=== PATIENT | female | born 1990 | race Two or more races ===

== ENCOUNTER 2025-03-30 12:43 | Inpatient (IN) | payer MEDICAID, OTHER ==
[~2025-03-30] VITALS: Ht 160 cm; Wt 101.9 kg
--- NOTE | 2025-03-30 13:20 | ED.PDOC ---
SOB-HPI HPI Comments 35y F who presents to the ED for chief complaint of shortness of breath. Pt states she has been having shortness of breath with cough and fever for the past 1 days. Pt states she has been having productive mucus and states "it when she takes a deep breath." Pt denies any sick contacts. . Pt denies any other symptoms at this time. Chief Complaint: Shortness of Breath Time Seen by MD: 13:17 Reviewed notes: Medications, Allergies Information Source: Patient Mode of Arrival: Ambulatory Brought in by: self Severity: Moderate Timing: Hours Duration: Since onset Context: At Rest PE Risk Factors: None History of: None Prehospital treatment: None Modifying Factors: Nothing Associated Signs and Symptoms: Cough If cough with SOB: Productive Past Medical History PAST MEDICAL HISTORY: Denies Surgical History: Denies all surgeries HEALTH TECHNICIAN HEARING History: Denies all HEALTH TECHNICIAN HEARING Hx Family History Family History: Family hx of DM Social History Smoker: Non-Smoker Alcohol: Occasionally Drugs: Denies Drug Use Lives In: Home Constitutional: reports: fever; denies: chills, diaphoresis, fatigue, malaise, sweats, weakness, others EENTM: denies: blurred vision, double vision, ear bleeding, ear discharge, ear drainage, ear pain, ear ringing, eye pain, eye redness, hearing loss, mouth pain, mouth swelling, nasal discharge, nose bleeding, nose congestion, nose pain, photophobia, tearing, throat pain, throat swelling, voice changes, others Respiratory: reports: cough, shortness of breath; denies: hemoptysis, orthopnea, SOB at rest, SOB with excertion, stridor, wheezing, others Cardiovascular: denies: chest pain, dizzy spells, diaphoresis, Dyspnea on exertion, edema, irregular heart beat, left arm pain, lightheadedness, palpitations, PND, syncope, others Gastrointestinal: denies: abdomen distended, abdominal pain, blood streaked bowels, constipated, diarrhea, dysphagia, difficulty swallowing, hematemesis, melena, nausea, poor appetite, poor fluid intake, rectal bleeding, rectal pain, vomiting, others Genitourinary: denies: abnormal vagina bleeding, burning, dyspareunia, dysuria, flank pain, frequency, hematuria, incontinence, pain, , vagina discharge, urgency, others Neurological: denies: dizziness, fainting, headache, left sided numbness, left sided weakness, numbness, paresthesia, pre-existing deficit, right sided numbness, right sided weakness, seizure, speech problems, tingling, tremors, weakness, others Musculoskeletal: denies: back pain, gout, joint pain, joint swelling, muscle p ain, muscle stiffness, neck pain, others Integumetry: denies: bruises, change in color, change in hair/nails, dryness, laceration, lesions, lumps, rash, wounds, others Allergic/Immunocompromised: denies: Difficulty Healing, Frequent Infections, Hives, Itching, others Hematologic/Lymphatic: denies: anemia, blood clots, easy bleeding, easy bruising, swollen glands, others Endocrine: denies: excessive hunger, excessive sweating, excessive thirst, excessive urination, flushing, intolerance to cold, intolerance to heat, unexplained weight gain, unexplained weight loss, others Psychiatric: denies: anxiety, bipolar disorder, depression, hopeless, panic disorder, schizophrenia, sleepless, suicidal, others All Other Systems: Reviewed and Negative Physical Exam General Appearance: Moderate Distress HEENT: Normal ENT Inspection, Pharynx Normal, TMs Normal Neck: Full Range of Motion, Non-Tender, Normal, Normal Inspection Respiratory: Chest Non-Tender, Decreased Breath Sounds, No Accessory Muscle Use, Wheezing (Waiting to the right lung base) Cardiovascular: No Edema, No JVD, No Murmur, No Gallop, Tachycardia Breast Exam: Deferred Gastrointestinal: No Organomegaly, Non Tender, No Pulsatile Mass, Normal Bowel Sounds, Soft Genitalia: Deferred Pelvic: Deferred Rectal: Deferred Extremities: No calf tenderness, Normal capillary refill, Normal inspection, Normal range of motion, Non-tender, No pedal edema Musculoskeletal : Apperance: Normal Neurologic: Alert, 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 Was a procedure done?: No Differential Dx Differential Diagnosis: Asthma, Bronchitis, Pneumonia, Pulmonary Embolism, Respiratory Distress, Sinusitis, Allergic Rhinitis, Pharyngitis Comments uri, X-Ray, Labs, Meds, VS Vital Signs Date Time Temp Pulse Resp B/P (MAP) Pulse Ox O2 Delivery O2 Flow Rate FiO2 03/30/25 14:21 129 03/30/25 13:50 16 96 Room Air* 0 21 03/30/25 13:32 101.8 03/30/25 13:14 138 03/30/25 13:00 101.8 139 20 121/82 (95) 94 101.8 Lab Test 03/30/25 13:30 Range/Units White Blood Count 12.1 H 4.4-10.8 10^3/uL Red Blood Count 4.95 4.0-5.20 10^6/uL Hemoglobin 14.7 12.2-16.2 g/dL Hematocrit 42.9 36.0-46.0 % Mean Corpuscular Volume 86.8 80.0-100.0 fL Mean Corpuscular Hemoglobin 29.6 28.0-32.0 pg Mean Corpuscular Hemoglobin Concent 34.2 32.0-36.0 g/dL Red Cell Distribution Width 13.1 11.8-14.3 % Platelet Count 388 140-450 10^3/uL Mean Platelet Volume 7.4 6.9-10.8 fL Neutrophils (%) (Auto) 84.6 H 37.0-80.0 % Lymphocytes (%) (Auto) 7.6 L 10.0-50.0 % Monocytes (%) (Auto) 6.0 0.0-12.0 % Eosinophils (%) (Auto) 1.1 0.0-7.0 % Basophils (%) (Auto) 0.7 0.0-2.0 % Neutrophils # (Auto) 10.2 H 1.6-8.6 10 ^3/uL Lymphocytes # (Auto) 0.9 0.4-5.4 10 ^3/uL Monocytes # (Auto) 0.7 0-1.3 10 ^3/uL Eosinophils # (Auto) 0.1 0-0.8 10 ^3/uL Basophils # (Auto) 0.1 0-0.2 10 ^3/uL Nucleated Red Blood Cells 0.0 % D-Dimer, Quantitative 0.37 0.0-0.49 mg/L FEU Sodium Level 137 136-145 mmol/L Potassium Level 3.9 3.5-5.1 mmol/L Chloride Level 105 98-107 mmol/L Carbon Dioxide Level 23 20-31 mmol/L Anion Gap 9 5-15 Blood Urea Nitrogen 12 9-23 mg/dL Creatinine 0.90 0.550-1.02 mg/dL Glomerular Filtration Rate Calc 84 >90 mL/min BUN/Creatinine Ratio 13.3 10.0-20.0 Serum Glucose 126 H 74-106 mg/dL Calcium Level 9.9 8.7-10.4 mg/dL Troponin I High Sensitivity < 3 L </=34 ng/L Current Medications Medications (Trade) Dose Ordered Sig/Tello Route Start Time Stop Time Status Last Admin Albuterol (Ventolin Medneb) 5 mg ONCE ONCE N 03/30/25 13:15 03/30/25 13:16 DC 03/30/25 13:49 Ipratropium [place] (Atrovent Medneb) 1 mg ONCE ONCE HHN 03/30/25 13:15 03/30/25 13:16 DC 03/30/25 13:49 Acetaminophen (Tylenol Tablet) 650 mg ONCE ONCE PO 03/30/25 13:30 03/30/25 13:31 DC 03/30/25 13:32 IV Hep-Lock was established The patient was given a continuous breathing treatments for the wheezing to the right lung The patient was also given acetaminophen 650 mg by mouth. The patient's D-dimer is within normal limits The chemistry panel is within normal range. The patient's CBC is also showing an elevated white blood cell count of 12.1 but otherwise within normal limits At this time, the patient is being admitted The chest x-ray shows: No sign of any abnormalities The patient is being admitted Images Reviewed?: Images reviewed and evaluated by me Time of 1ST Reevaluation: 13:50 Reevaluation 1ST: Unchanged Patient Education/Counseling: Diagnosis, Treatment, Prognosis Family Education/Counseling: No Family Present Departure 1 Departure Time of Disposition: 14:32 Impression: Primary Impression: Acute chest pain Additional Impression: Tachyarrhythmia Disposition: ADMITTED INPATIENT Admit to: [facility] Condition: Fair Critical Care Note Critical Care Time?: No Stability Stability form required: Yes Unstable for transfer: Telemetry monitoring (Telemetry monitoring required), ED Physician Assesment (Clinical assesment) Heart Score Heart Score: Heart Score Response (Comments) Value History Slightly Suspicious 0 EKG Repolarization Disturb 1 Age <45 0 Risk Factors No known risk factors 0 Troponin Normal limit 0 Total 1 I personally scribed for KAE ERNST MD ([email or web address]) on 03/30/25 at 13:20. Electronically submitted by Aleyda Magaña ([facility]). KAE ERNST MD Mar 30, 2025 13:20
--- NOTE | 2025-03-30 13:22 | ECG ---
[facility] Test Date: 2025-03-30 Test Time: 13:14:02 Pat Name: GENNA MAYES Department: ED Room: [address] [place] [address] Gender: F Handling Tech: ARIELA : 1990 Requested By: KAE ERNST Order Number: [id number] Reading MD: Hilario Wu Measurements Intervals [place] Rate: 138 P: 67 MS: 128 QRS: 83 QRSD: 78 T: 50 QT: 288 QTc: 437 Interpretive Statements Sinus tachycardia Baseline wander in lead(s) I,aVR Electronically Signed On 03-30-2025 22:37:05 PDT by Hilario Wu Please click the below link to view image of tracing.
[2025-03-30] MEDS: ACETAMINOPHEN 325 MG TAB PO ONE (13:32)
[2025-03-30 13:37] LABS: Basophils # (auto) 0.1 10 ^3/uL (0-0.2); Basophils % (auto) 0.7 % (0.0-2.0); Eosinophils # (auto) 0.1 10 ^3/uL (0-0.8); Eosinophils % (auto) 1.1 % (0.0-7.0); Hematocrit 42.9 % (36.0-46.0); Hemoglobin 14.7 g/dL (12.2-16.2); Lymphocytes # (auto) 0.9 10 ^3/uL (0.4-5.4); Lymphocytes % (auto) 7.6 % (10.0-50.0); Mean Corpuscular Hemoglobin 29.6 pg (28.0-32.0); Mean Corpuscular Hgb Conc. 34.2 g/dL (32.0-36.0); Mean Corpuscular Volume 86.8 fL (80.0-100.0); Monocytes # (auto) 0.7 10 ^3/uL (0-1.3); Neutrophils # (auto) 10.2 10 ^3/uL (1.6-8.6); Neutrophils % (auto) 84.6 % (37.0-80.0); Platelet Count (auto) 388 10^3/uL (140-450); Red Blood Cells 4.95 10^6/uL (4.0-5.20); Red Cell Distribution Width 13.1 % (11.8-14.3); White Blood Cell 12.1 10^3/uL (4.4-10.8)
[2025-03-30] MEDS: IPRATROPIUM BROM 0.5 MG/2.5ML INH SOL HHN ONE (13:49)
[2025-03-30] MEDS: ALBUTEROL SULF 2.5 MG/0.5ML(0.5%) NEB SOLN HHN ONE (13:49)
[2025-03-30 13:50] LABS: Chloride 105 mmol/L (98-107); Potassium 3.9 mmol/L (3.5-5.1); Sodium 137 mmol/L (136-145)
[2025-03-30 13:51] LABS: Anion Gap 9 (5-15); Calcium 9.9 mg/dL (8.7-10.4); Carbon Dioxide 23 mmol/L (20-31)
[2025-03-30 13:56] LABS: BUN/Creatinine Ratio 13.3 (10.0-20.0); Blood Urea Nitrogen 12 mg/dL (9-23)
--- NOTE | 2025-03-30 13:59 | DVH ---
CHEST RADIOGRAPH Indication: sob Technique: Frontal and lateral view of the chest was obtained Comparison: None FINDINGS: Lines and Tubes: None Lungs: Clear Pleura: No effusion. No pneumothorax. Cardiomediastinal contours: Unremarkable Bones: Unremarkable IMPRESSION: No evidence of acute cardiopulmonary disease.
[2025-03-30 14:03] LABS: Glucose 126 mg/dL (74-106)
[2025-03-30] MEDS ORDERED: ACETAMINOPHEN 325 MG TAB PO PRN (21:30)
[2025-03-30] MEDS: AZITHROMYCIN 500MG/ 250ML 250 ML IV ONE (21:45)
[2025-03-30 21:52] VITALS: BP 145/85; PULSE 121; RESP 18; O2SAT 97
--- NOTE | 2025-03-30 21:57 | DVHHPRES ---
History of Present Illness Resident Creating Document: ALONSO JACKSON History of Present Illness This is a 35-year-old female with no past medical history of relevance, takes no home medications just multivitamins. The patient presented to the ED with chief complaint of shortness of breaths associated with cough and sputum production. The patient states that symptoms started one day ago before coming to the ED were consistent with shortness of breaths, cough and whitish sputum production. The patient states that his boyfriend had flu-like symptoms three days back. The patient also reported a single episode of vomiting that was associated with a chronic cough. The patient also reports fever on admission but denies chills, chest pain, abdominal pain, weight loss, night sweats or any other associated symptoms. Initial chest x-ray was grossly clear with no evidence of clear consolidations. D-dimer was normal range and troponins came back negative. Initial labs showed an elevated WBC at 12.1 but otherwise was grossly unremarkable. We will admit the patient for further assessment and management of acute respiratory distress likely due to bacterial/viral pneumonia. Past medical history: Denies Past surgical history: Bilateral fallopian tube ligation Social history: Reports occasional alcohol consumption but denies smoking or drug consumption. no home medications Past Surgical History: Tubal Ligation Family History: None Smoke: No ALCOHOL: occassional Drugs: None Lives: with Family Domestic Violence: Neg Review of Systems Constitutional: Yes: Fever; No: Chills, Sweats, Weakness, Malaise, Other Eyes: No: Pain, Vision change, Conjunctivae inflammation, Eyelid inflammation, Other, Redness ENT: No: Ear pain, Ear discharge, Nose pain, Nose discharge, Nose congestion, Mouth pain, Mouth swelling, Throat pain, Throat swelling, Other Respiratory: Cough, Dry, Shortness of breath, Sputum; No: SOB with excertion, Wheezing, Hemoptysis, Pleuritic Pain, Wheezing, Other Cardiovascular: No: Chest Pain, Palpitations, Orthopnea, Paroxysmal Noc. Dyspnea, Edema, Lt Headedness, Other Gastrointestinal: Vomiting; No: Nausea, Abdominal Pain, Diarrhea, Constipation, Melena, Hematochezia, Other Genitourinary: No Dysuria, No Frequency, No Incontinence, No Hematuria, No Retention, No Other Musculoskeletal: No: other, neck pain, shoulder pain, arm pain, back pain, hand pain, leg pain, foot pain Skin: No: Rash, Lesions, Jaundice, Bruising, Other Neurological: No: Weakness, Numbness, Incoordination, Change in speech, Confusion, Seizures, Other Allergies: Coded Allergies: NO KNOWN ALLERGIES (Unverified , 03/30/25) Medications Current Medications Medications Dose Ordered Sig/Tello Route Start Time Stop Time Status Last Admin Dose Admin Sodium Chloride 1,000 ml @ 75 mls/hr [id number] IV 03/30/25 21:30 UNV Acetaminophen 650 mg Q6HP PRN PO 03/30/25 21:30 UNV Exam Vital Signs Vital Signs Date Time Temp Pulse Resp B/P (MAP) Pulse Ox O2 Delivery O2 Flow Rate FiO2 03/30/25 21:04 100.0 121 17 145/85 (105) 97 100.0 03/30/25 18:38 Room Air 03/30/25 13:50 0 21 General Appearance: Alert, Oriented X3, Cooperative, No acute distress HEENT: Atraumatic, PERRLA, EOMI, Mucous membr. moist/pink Respiratory: Clear to auscultation, Normal air movement Cardiovascular: Regular rate, Normal S1, Normal S2, No murmurs Abdominal: Normal bowel sounds, Soft, No tenderness, No hepatospenomegaly Extremities: No clubbing, No cyanosis, No edema, Normal pulses, No tenderness/swelling Skin: No rashes, No breakdown, No significant lesion Neuro: Normal gait, Normal speech, Strength at 5/5 X4 ext, Normal tone, Sensation intact, Cranial nerves 3-12 NL, Reflexes 2+ Psych/Mental Status: Mental status NL, Mood NL Labs/Xrays Labs Test 03/30/25 14:30 03/30/25 13:30 Range/Units Troponin I High Sensitivity < 3 L </=34 ng/L White Blood Count 12.1 H 4.4-10.8 10^3/uL Red Blood Count 4.95 4.0-5.20 10^6/uL Hemoglobin 14.7 12.2-16.2 g/dL Hematocrit 42.9 36.0-46.0 % Mean Corpuscular Volume 86.8 80.0-100.0 fL Mean Corpuscular Hemoglobin 29.6 28.0-32.0 pg Mean Corpuscular Hemoglobin Concent 34.2 32.0-36.0 g/dL Red Cell Distribution Width 13.1 11.8-14.3 % Platelet Count 388 140-450 10^3/uL Mean Platelet Volume 7.4 6.9-10.8 fL Neutrophils (%) (Auto) 84.6 H 37.0-80.0 % Lymphocytes (%) (Auto) 7.6 L 10.0-50.0 % Monocytes (%) (Auto) 6.0 0.0-12.0 % Eosinophils (%) (Auto) 1.1 0.0-7.0 % Basophils (%) (Auto) 0.7 0.0-2.0 % Neutrophils # (Auto) 10.2 H 1.6-8.6 10 ^3/uL Lymphocytes # (Auto) 0.9 0.4-5.4 10 ^3/uL Monocytes # (Auto) 0.7 0-1.3 10 ^3/uL Eosinophils # (Auto) 0.1 0-0.8 10 ^3/uL Basophils # (Auto) 0.1 0-0.2 10 ^3/uL Nucleated Red Blood Cells 0.0 % D-Dimer, Quantitative 0.37 0.0-0.49 mg/L FEU Sodium Level 137 136-145 mmol/L Potassium Level 3.9 3.5-5.1 mmol/L Chloride Level 105 98-107 mmol/L Carbon Dioxide Level 23 20-31 mmol/L Anion Gap 9 5-15 Blood Urea Nitrogen 12 9-23 mg/dL Creatinine 0.90 0.550-1.02 mg/dL Glomerular Filtration Rate Calc 84 >90 mL/min BUN/Creatinine Ratio 13.3 10.0-20.0 Serum Glucose 126 H 74-106 mg/dL Calcium Level 9.9 8.7-10.4 mg/dL Assessment/Plan Assessment/Plan Assessment/plan Acute hypoxic respiratory distress likely due to gram +/- bacterial pneumonia, R/O viral pneumonia -initial WBC 12.1, fever, tachycardic -initial chest x-ray was grossly unremarkable -currently on room air -D-dimer was normal range at 0.37 -ordered COVID-19 Ibis antigen test and influenza a and B -Ordered UA, UDS -start IV ceftriaxone azithromycin -start albuterol and ipratropium med nebs q.6 hours -acetaminophen for fever Morbid obesity -Egg Grader on weight loss and lifestyle modifications -screen for DM and dyslipidemia with A1c and lipid panel Goals of care discussed with the patient at bedside for >35min, FULL CODE Plan discussed with Dr. Perez Plan discussed with: Patient My Orders Orders - ALONSO JACKSON Procedure Category Date Status Time Admit ADMIT 03/30/25 Transmitted 21:30 Code Status CODE 03/30/25 Transmitted 21:30 Vital Signs PATRICK 03/30/25 In Process 21:30 Review Orders With PATRICK 03/30/25 In Process Adm. 21:30 Encourage Activity As PATRICK 03/30/25 In Process Tolerate 21:30 Regular Diet DIET 03/31/25 Transmitted Breakfast Sodium Chloride 0.9% PHA 03/30/25 Logged 21:30 Acetaminophen Tablet PHA 03/30/25 Logged (Tylenol Tablet) 21:30 Notify Of Changes [facility] 03/30/25 In Process From Base 21:30 Advance Directive [facility] 03/30/25 In Process 21:30 Basic Metabolic Panel LAB 03/31/25 Verified 04:00 Complete Blood Count LAB 03/31/25 Verified 04:00 Lipid Panel LAB 03/30/25 Logged 21:30 Patient Condition ORDERS 03/30/25 Transmitted 21:30 Allergies PATRICK 03/30/25 In Process 21:30 Drug Screen LAB 03/30/25 Logged 21:30 Hemoglobin A1c LAB 03/30/25 Logged 21:30 Urinalysis LAB 03/30/25 Logged 21:30 Covid19 Antigen [place] LAB 03/30/25 Logged Rapid Influenza A&B LAB 03/30/25 Logged 21:41 Ceftriaxone Ivpb PHA 03/30/25 Transmitted Rocephin 21:45 Azithromycin 500mg/ PHA 03/30/25 Transmitted 250ml (Zithromax 50 21:45 Azithromycin Tablet PHA 03/31/25 Transmitted (Zithromax Tablet) 10:00 Albuterol Medneb PHA 03/31/25 Transmitted (Ventolin Medneb) 00:00 Ipratropium Medneb PHA 03/31/25 Transmitted (Atrovent Medneb) 00:00 Date of Service: Mar 30, 2025 Billing Provider: ARPITA PEREZ MD Common Visit Codes: 82315-[id number] INP/OBS CARE (HIGH) Secondary Visit Codes: 78329-[id number] CARE PLAN 30 MINUTES ALONSO JACKSON Mar 30, 2025 21:57 ARPITA PEREZ MD Mar 31, 2025 21:41
[2025-03-30 22:08] LABS: Triglycerides 65 mg/dL (< 150)
[2025-03-30 22:09] LABS: LDL Cholesterol 72 mg/dL (< 100)
[2025-03-30 22:10] LABS: Cholesterol 132 mg/dL (< 200); HDL Cholesterol 54 mg/dL (40-59)
[2025-03-30 22:48] LABS: COVID19 ANTIGEN SOFIA FIA NEGATIVE (NEGATIVE)
[2025-03-30 22:48] LABS: Rapid Influenza A Negative (Negative); Rapid Influenza B Negative (Negative)
[2025-03-30 23:22] VITALS: BP 116/78; PULSE 89; RESP 19
[2025-03-30] MEDS: SODIUM CHLORIDE 0.9% 1,000 ML IV SCH (23:38)
[2025-03-31] VITALS (20 sets, daily range): BP systolic 99–133; BP diastolic 60–77; PULSE 87–116; RESP 16–19; TEMP 98.1–99.6; O2SAT 92–100
[2025-03-31] MEDS: cefTRIAXone 1GM/50ML D5W 50 ML IV SCH (00:10)
[2025-03-31] MEDS: ALBUTEROL SULF 2.5 MG/0.5ML(0.5%) NEB SOLN NEB SCH (00:14)
[2025-03-31] MEDS: IPRATROPIUM BROM 0.5 MG/2.5ML INH SOL NEB SCH (00:14)
[2025-03-31] MEDS: diphenhdrAMINE HCL 50 MG/1 ML VL IV ONE (05:13)
[2025-03-31 05:58] LABS: Urine Blood Negative /uL (Negative); Urine Budding Yeast OCCASIONAL /hpf (None Seen); Urine Clarity Clear (Clear); Urine Color Light-Yellow (Yellow); Urine Protein, UAD Negative (Negative); Urine Squamous Epithelial Cell FEW /hpf (<5); Urine Urobilinogen Normal (Negative); Urine WBC < 1 /HPF (0-5)
[2025-03-31 06:09] LABS: Phencyclidine Screen, Urine Neg (NEGATIVE)
[2025-03-31 06:13] LABS: Amphetamine Screen, Urine Neg (NEGATIVE); Barbiturate Scree,Urine Neg (NEGATIVE); Benzodiazephine Screen, Urine Neg (NEGATIVE); Cannabinoid Screen, Urine Neg (NEGATIVE); Cocaine Screen, Urine Neg (NEGATIVE); Opiate Scree,Urine Neg (NEGATIVE)
[2025-03-31 06:21] LABS: Basophils # (auto) 0 10 ^3/uL (0-0.2); Basophils % (auto) 0.3 % (0.0-2.0); Eosinophils # (auto) 0 10 ^3/uL (0-0.8); Eosinophils % (auto) 0.7 % (0.0-7.0); Hematocrit 39.2 % (36.0-46.0); Hemoglobin 13.5 g/dL (12.2-16.2); Lymphocytes # (auto) 1.6 10 ^3/uL (0.4-5.4); Lymphocytes % (auto) 23.4 % (10.0-50.0); Mean Corpuscular Hgb Conc. 34.5 g/dL (32.0-36.0); Mean Corpuscular Volume 87.1 fL (80.0-100.0); Monocytes # (auto) 0.9 10 ^3/uL (0-1.3); Monocytes % (auto) 13.3 % (0.0-12.0); Neutrophils # (auto) 4.2 10 ^3/uL (1.6-8.6); Neutrophils % (auto) 62.3 % (37.0-80.0); Nucleated Red Blood Cells % 0.2 %; Platelet Count (auto) 341 10^3/uL (140-450); Red Blood Cells 4.49 10^6/uL (4.0-5.20); Red Cell Distribution Width 13.3 % (11.8-14.3); White Blood Cell 6.8 10^3/uL (4.4-10.8)
[2025-03-31 06:30] LABS: Anion Gap 10 (5-15); Calcium 8.9 mg/dL (8.7-10.4); Carbon Dioxide 25 mmol/L (20-31); Chloride 103 mmol/L (98-107); Sodium 138 mmol/L (136-145)
[2025-03-31 06:33] LABS: Potassium 3.3 mmol/L (3.5-5.1)
[2025-03-31 06:35] LABS: BUN/Creatinine Ratio 13.3 (10.0-20.0); Blood Urea Nitrogen 10 mg/dL (9-23); Glucose 96 mg/dL (74-106)
[2025-03-31] MEDS: AZITHROMYCIN 250 MG TAB PO SCH (08:56)
[2025-03-31] MEDS: POTASSIUM CHL 20 Meq TABLET PO ONE (08:56)
--- NOTE | 2025-03-31 10:36 | DVHPNRES ---
Progress Note Date Seen: Mar 31, 2025 Resident Creating Document: DANNI BROWN RESIDENT Medical Necessity Reason Pt with a Central, PICC or Fol: No Subjective Review of Systems 35 YO female with no significant PMH presents to the hospital with shortness of breath that began yesterday morning. This is her first experience with this symptom. She reports waking up yesterday morning with difficulty breathing. She was also coughing and vomiting phlegm, which she describes as white and foamy. She had a fever at the time of symptom onset. Prior to coming to the hospital, she took Robitussin, Tamiflu, and halls for her symptoms, with very little relieved. She mentions being sick for about 3 days before the cough started, which began the day before her hospital visit. The shortness of breath has affected her sleep, Pt denies any history of asthma or allergies. She experienced some chest pain, which she attributes to the coughing, but reports that it has resolved. She denies any current fatigue, dizziness, or chest pain. The patient's boyfriend had a mild cough recently, which may be related to her current illness. - Substance Use: Former smoker (quit, no current use). Occasional alcohol use. No recreational drug use. - Occupation: Staying at home - Living Situation: Lives with boyfriend CONSTITUTIONAL: Admits: fever and chills. HEENT: Denies changes in vision and hearing. RESPIRATORY: Admits cough.Denies SOB CV: Denies palpitations and chest pain. GI: Denies abdominal pain, nausea, vomiting and diarrhea. : Denies dysuria and urinary frequency. MSK: Denies myalgia and joint pain. SKIN: Denies rash and pruritus. NEUROLOGICAL: Denies headache Objective vital signs Vital Sign Date Time Temp Pulse Resp B/P (MAP) Pulse Ox O2 Delivery O2 Flow Rate FiO2 03/31/25 10:00 94 Room Air* 0 21 03/31/25 09:00 98.7 99 16 105/60 (75) 98.7 Total Intake and Output 03/30/25 03/30/25 03/31/25 15:00 23:00 07:00 Intake Total 300 ml Output Total 0 ml Balance 300 ml medications Current Medications Medications Dose Ordered Sig/Tello Route Start Time Stop Time Status Last Admin Dose Admin Sodium Chloride 1,000 ml @ 75 mls/hr [id number] IV 6/1/25 21:30 03/30/25 23:38 75 MLS/HR Acetaminophen 650 mg Q6HP PRN PO 03/30/25 21:30 Ceftriaxone Sodium 50 ml @ 100 mls/hr DAILY IV 03/30/25 21:45 03/31/25 08:55 100 MLS/HR Albuterol 2.5 mg Q6HR NEB 03/31/25 00:00 03/31/25 06:40 2.5 MG Ipratropium [place] 0.5 mg Q6HR NEB 03/31/25 00:00 03/31/25 06:40 0.5 MG Azithromycin 250 ml @ 125 mls/hr DAILY IV 04/01/25 10:00 UNV Guaifenesin 200 mg Q6HP PRN PO 03/31/25 10:30 UNV Examination GENERAL: Not in acute distress. HEENT: EOMI, Moist mucous membranes. No scleral icterus. No cervical lymphadenopathy. LUNGS: Wheezing noted on deep breath. No accessory muscle use. CARDIOVASCULAR: Regular rate and rhythm. No murmur. No JVD. ABDOMEN: Soft, nontender and nondistended. No palpable masses. EXTREMITIES: No edema. Nontender. SKIN: No rashes or lesions. Warm. NEUROLOGIC: Alert and oriented X4 laboratory and microbiology Laboratory Tests 03/31/25 05:59 Test 03/31/25 05:59 Range/Units Serum Glucose 96 74-106 mg/dL Problem List/Assessment/Plan Problem List/Assessment/Plan # Sepsis secondary to possible Gm +/- Bacterial Pneumonia # Community-acquired Gm +/- Bacterial Pneumonia - on admission patient's WBC 12, temperature was 101.8 F, HR: 139, RR 20, O2 sat was 92%, - COVID-19, Flu negative -Chest X-ray is clear, but clinical presentation is consistent with possible pneumonia - Continue ceftriaxone and azithromycin for empiric antibiotic . - Continue breathing treatments - Monitor temperature and oxygen saturation - Observe for improvement in shortness of breath and cough - Robitussin p.r.n. for cough # Hypokalemia - Potassium level was low at 3.3 mmol/L. - Replenished oral potassium 40 supplement - Monitor BMP # Sinus Tachycardia likely due to sepsis secondary to Pneumonia - Monitor heart rate - Reassess as respiratory symptoms improve # Morbid obesity - BMI is 40.9 - lifestyle modification, low calorie diet, regular exercise. Goals of care discussed with the patient at bedside for 27min, FULL CODE Plan discussed with Dr. Garcia Plan discussed with: Patient My Orders My Orders Orders - DANNI BROWN RESIDENT Procedure Category Date Status Time Azithromycin 500mg/ PHA 04/01/25 Logged 250ml (Zithromax 50 10:00 Azithromycin 500mg/ PHA 03/31/25 Logged 250ml (Zithromax 50 10:30 Guaifenesin Plain PHA 03/31/25 Logged Liquid (Robitussin Phil 10:30 DANNI BROWN RESIDENT Mar 31, 2025 10:36
[2025-03-31] MEDS: AZITHROMYCIN 500MG/ 250ML 250 ML IV ONE (11:10)
[2025-03-31] MEDS: guaiFENesin 200 MG/10 ML UD PO PRN (11:11)
[2025-04-01] VITALS (11 sets, daily range): BP systolic 109–141; BP diastolic 67–95; PULSE 89–109; RESP 16–20; TEMP 35.9; O2SAT 92–100
[2025-04-01 07:47] LABS: Basophils # (auto) 0 10 ^3/uL (0-0.2); Basophils % (auto) 0.4 % (0.0-2.0); Eosinophils # (auto) 0.1 10 ^3/uL (0-0.8); Hematocrit 40.8 % (36.0-46.0); Hemoglobin 13.6 g/dL (12.2-16.2); Lymphocytes # (auto) 3.4 10 ^3/uL (0.4-5.4); Lymphocytes % (auto) 54.5 % (10.0-50.0); Mean Corpuscular Hemoglobin 29.5 pg (28.0-32.0); Mean Corpuscular Hgb Conc. 33.3 g/dL (32.0-36.0); Mean Corpuscular Volume 88.5 fL (80.0-100.0); Monocytes # (auto) 0.7 10 ^3/uL (0-1.3); Monocytes % (auto) 11.7 % (0.0-12.0); Neutrophils % (auto) 32.4 % (37.0-80.0); Nucleated Red Blood Cells % 0.1 %; Platelet Count (auto) 348 10^3/uL (140-450); Red Cell Distribution Width 13.1 % (11.8-14.3); White Blood Cell 6.2 10^3/uL (4.4-10.8)
[2025-04-01 07:49] LABS: Potassium 3.9 mmol/L (3.5-5.1); Sodium 142 mmol/L (136-145)
[2025-04-01 07:50] LABS: Anion Gap 8 (5-15); Calcium 9.2 mg/dL (8.7-10.4); Carbon Dioxide 26 mmol/L (20-31)
[2025-04-01 07:56] LABS: BUN/Creatinine Ratio 15.2 (10.0-20.0); Blood Urea Nitrogen 12 mg/dL (9-23)
[2025-04-01 07:57] LABS: Chloride 108 mmol/L (98-107)
[2025-04-01 08:39] LABS: Glucose 92 mg/dL (74-106)
[2025-04-01] MEDS: AZITHROMYCIN 500MG/ 250ML 250 ML IV SCH (10:18)
[2025-04-01] MEDS: diphenhdrAMINE HCL 12.5 MG/5 ML UD PO ONE (10:18)
[2025-04-01] MEDS ORDERED: LEVO750T40 PO (11:08)
--- NOTE | 2025-04-01 11:51 | DVHDSRES ---
Discharge Summary Date of Admission Resident Creating Document: DANNI BROWN RESIDENT Mar 30, 2025 at 21:30 Date of Discharge: Apr 01, 2025 Admitting Diagnosis Sepsis Labs/Diagnostic Data: Laboratory Results Test 04/01/25 06:54 03/30/25 22:08 03/30/25 21:41 03/30/25 14:30 White Blood Count 6.2 10^3/uL (4.4-10.8) Red Blood Count 4.60 10^6/uL (4.0-5.20) Hemoglobin 13.6 g/dL (12.2-16.2) Hematocrit 40.8 % (36.0-46.0) Mean Corpuscular Volume 88.5 fL (80.0-100.0) Mean Corpuscular Hemoglobin 29.5 pg (28.0-32.0) Mean Corpuscular Hemoglobin Concent 33.3 g/dL (32.0-36.0) Red Cell Distribution Width 13.1 % (11.8-14.3) Platelet Count 348 10^3/uL (140-450) Mean Platelet Volume 7.8 fL (6.9-10.8) Neutrophils (%) (Auto) 32.4 % (37.0-80.0) Lymphocytes (%) (Auto) 54.5 % (10.0-50.0) Monocytes (%) (Auto) 11.7 % (0.0-12.0) Eosinophils (%) (Auto) 1.0 % (0.0-7.0) Basophils (%) (Auto) 0.4 % (0.0-2.0) Neutrophils # (Auto) 2.0 10 ^3/uL (1.6-8.6) Lymphocytes # (Auto) 3.4 10 ^3/uL (0.4-5.4) Monocytes # (Auto) 0.7 10 ^3/uL (0-1.3) Eosinophils # (Auto) 0.1 10 ^3/uL (0-0.8) Basophils # (Auto) 0 10 ^3/uL (0-0.2) Nucleated Red Blood Cells 0.1 % Sodium Level 142 mmol/L (136-145) Potassium Level 3.9 mmol/L (3.5-5.1) Chloride Level 108 mmol/L (98-107) Carbon Dioxide Level 26 mmol/L (20-31) Anion Gap 8 (5-15) Blood Urea Nitrogen 12 mg/dL (9-23) Creatinine 0.79 mg/dL (0.550-1.02) Glomerular Filtration Rate Calc 99 mL/min (>90) BUN/Creatinine Ratio 15.2 (10.0-20.0) Serum Glucose 92 mg/dL (74-106) Calcium Level 9.2 mg/dL (8.7-10.4) SARS-CoV-2 Antigen (Rapid) Negative (NEGATIVE) Influenza Type A Antigen Negative (Negative) Influenza Type B Antigen Negative (Negative) Troponin I High Sensitivity < 3 ng/L (</=34) Triglycerides Level 65 mg/dL (< 150) Cholesterol Level 132 mg/dL (< 200) LDL Cholesterol 72 mg/dL (< 100) HDL Cholesterol 54 mg/dL (40-59) Test 03/30/25 13:30 03/30/25 13:20 D-Dimer, Quantitative 0.37 mg/L FEU (0.0-0.49) Hemoglobin A1c 5.4 % A1C (<5.7) Urine Color Light-yellow (Yellow) Urine Clarity Clear (Clear) Urine pH 7.0 (5.0-9.0) Urine Specific [place] 1.020 (1.001-1.035) Urine Protein Negative (Negative) Urine Ketones Trace (Negative) Urine Blood Negative /uL (Negative) Urine Nitrite Negative (Negative) Urine Bilirubin Negative (Negative) Urine Urobilinogen Normal mg/dL (Negative) Urine Leukocyte Esterase Negative /uL (Negative) Urine RBC 3 /hpf (0 - 4) Urine Microscopic WBC < 1 /HPF (0-5) Urine Squamous Epithelial Cells Few /hpf (<5) Urine Bacteria /hpf (None Seen) Urine Yeast (Budding) Occasional /hpf (None Urine Glucose Normal mg/dL (Normal) Urine Opiates Screen Neg (NEGATIVE) Urine Fentanyl Screen Neg (NEGATIVE) Urine Barbiturates Screen Neg (NEGATIVE) Urine Phencyclidine Screen Neg (NEGATIVE) Urine Amphetamines Screen Neg (NEGATIVE) Urine Benzodiazepines Screen Neg (NEGATIVE) Urine Cocaine Screen Neg (NEGATIVE) Urine Cannabinoids Screen Neg (NEGATIVE) Other Laboratory Tests 04/01/25 06:54 Brief Hx & Hospital Course: 35 YO female with no significant PMH presents to the hospital with shortness of breath that began yesterday morning. This is her first experience with this symptom. She reports waking up yesterday morning with difficulty breathing. She was also coughing and vomiting phlegm, which she describes as white and foamy. She had a fever at the time of symptom onset. Prior to coming to the hospital, she took Robitussin, Tamiflu, and halls for her symptoms, with very little relieved. She mentions being sick for about 3 days before the cough started, which began the day before her hospital visit. The shortness of breath has affected her sleep, Pt denies any history of asthma or allergies. She experienced some chest pain, which she attributes to the coughing, but reports that it has resolved. She denies any current fatigue, dizziness, or chest pain. The patient's boyfriend had a mild cough recently, which may be related to her current illness. - on admission patient's WBC 12, temperature was 101.8 F, HR: 139, RR 20, O2 sat was 92%, - COVID-19, Flu negative -Chest X-ray was clear, but clinical presentation is consistent with possible pneumonia. Patient was treated with Rocephin and azithromycin, two the patient is feeling better, no fever chills or shortness of breathe, patient is hemodynamically stable, patient is going to be discharged home with Levaquin 750 mg PO daily X5 days. Advised patient to follow up with PCP in 1-2 weeks. GENERAL: Not in acute distress. HEENT: EOMI, Moist mucous membranes. No scleral icterus. No cervical lymphadenopathy. LUNGS: Clear to auscultation bilaterally. No accessory muscle use. CARDIOVASCULAR: Regular rate and rhythm. No murmur. No JVD. ABDOMEN: Soft, nontender and nondistended. No palpable masses. EXTREMITIES: No edema. Nontender. SKIN: No rashes or lesions. Warm. NEUROLOGIC: Alert and oriented X4 Condition at Discharge: Stable Final Diagnosis/Problems List # Sepsis secondary to possible Gm +/- Bacterial Pneumonia # Community-acquired Gm +/- Bacterial Pneumonia # Hypokalemia # Sinus Tachycardia likely due to sepsis secondary to Pneumonia # Morbid obesity Discharge Disposition: Home SNF Discharge Will this Physician continue t: No Discharge Instruct/Medications Diet: Regular Activity: No Restrictions, As Tolerated Follow Up/Referral: Follow up with PCP in 1-2 weeks. Medications: Levaquin 750 mg PO daily X5 days. Discharge Statement: "Patient was advised to return to the ER or call 911 if any headaches, dizziness, shortness of breath, chest pain, abdominal pain, bleeding, fevers, or worsening of medical condition. Patient was counseled about treatment plan, medications, possible side effects, patientverbalized understanding. All questions were answered to the best of my ability. This discharge took greater then 30 minutes in planning, reviewing documentation, counseling the patient, and discussing with other team members." ASSESSMENT ASSESSMENT Assessment # Sepsis secondary to possible Gm +/- Bacterial Pneumonia # Community-acquired Gm +/- Bacterial Pneumonia # Hypokalemia # Sinus Tachycardia likely due to sepsis secondary to Pneumonia # Morbid obesity Date of Service: Apr 01, 2025 Billing Provider: TR PANDEY MD Common Visit Codes: 68773-JLS/OBS DISCH DAY >30min DANNI BROWN RESIDENT Apr 01, 2025 11:51 TR PANDEY MD Apr 02, 2025 08:56
--- NOTE | 2025-04-03 07:03 | ECG ---
[facility] Test Date: 2025-03-30 Test Time: 14:21:04 Pat Name: GENNA MAYES Department: ED Room: 0289 B Gender: F Safety Attendant: GINA : 1990 Requested By: KAE ERNST Order Number: [id number] Reading MD: Hilario Wu Measurements Intervals [place] Rate: 129 P: 55 NH: 128 QRS: 46 QRSD: 77 T: 29 QT: 342 QTc: 502 Interpretive Statements Sinus tachycardia Probable left atrial enlargement Low voltage, precordial leads Borderline prolonged QT interval Electronically Signed On 04-03-2025 9:33:36 PDT by Hilario Wu Please click the below link to view image of tracing.
== END 2025-04-01 15:15 | disposition home or self-care (01) | DRG 720 ==
LOC: ER 12:57 → OVERFLOW 21:30 → WEST WING 03-31 01:20
PROVIDERS: ADMIT Student in an Organized Health Care Education/Training Program; ATTEND Emergency Medicine
DX: A41.59 Other Gram-negative sepsis (principal); J15.69 Pneumonia due to other Gram-negative bacteria; J15.9 Unspecified bacterial pneumonia; E66.01 Morbid (severe) obesity due to excess calories; Z68.41 Body mass index [BMI] 40.0-44.9, adult; E87.6 Hypokalemia; Z20.822 Contact with and (suspected) exposure to COVID-19; E78.5 Hyperlipidemia, unspecified; Z83.3 Family history of diabetes mellitus; R06.03 Acute respiratory distress
CPT/HCPCS: 36415; 71046; 80048; 80061; 80307; 81001; 83036; 84484; 85025; 85379; 87426; 87804; 93005; 94640; 96365; G0378